=== PATIENT | female | born 1960 | race Caucasian/White ===

== ENCOUNTER 2020-01-12 09:37 | Outpatient (CLI) | payer MEDICAID, SELFPAY ==
--- NOTE | 2020-01-12 09:43 | CT_ITS ---
WS: [id number] CT LUNG CANCER SCREENING DLP: 83.5 mGy.cm DIvol: 2.28 mGy CLINICAL INFORMATION SCREENING VISIT: Baseline COMPARISON: None available. FINDINGS Diagnostic quality: Satisfactory Comments: None. Lung Nodules: Partially calcified 4 millimeter nodule RIGHT lower lobe, image 126 of series 3. No end obronchial lesions. Lungs: RIGHT apical pleural thickening and scarring. Benign granulomata LEFT lower lobe. Heart: Normal size heart. No pericardial effusions. Other findings: Mild atherosclerosis aorta. No aneurysm. A few scattered coronary artery calcificatio ns. Small hiatal hernia. Well-circumscribed 18 mm LEFT adrenal mass is probably an adenoma. No histor y of malignancy statistically this would be an adenoma. Hounsfield units are slightly elevated. CT/CT lung screening [id number] IMPRESSION: LUNG-RADS: 2S-Benign Appearance or Behavior with Significant Findings FOLLOW UP: 12 Month: Continue annual screening with LDCT 1. LEFT adrenal mass measures 18 mm. Statistically this is likely an adenoma. Recommend dedicated CT protocol of the adrenal glands.
== END 2020-01-12 09:38 | disposition home or self-care (01) ==
LOC: RAD 09:40
PROVIDERS: PCP Internal Medicine; Visit Provider Internal Medicine
DX: Z12.2 Encounter for screening for malignant neoplasm of respiratory organs (principal); F17.200 Nicotine dependence, unspecified, uncomplicated; D49.7 Neoplasm of unspecified behavior of endocrine glands and other parts of nervous system
CPT/HCPCS: G0297

== ENCOUNTER 2020-02-16 12:57 | Outpatient (CLI) | payer MEDICAID, SELFPAY ==
--- NOTE | 2020-02-16 13:17 | MM_ITS ---
WS: [id number] BILATERAL DIGITAL SCREENING MAMMOGRAPHY WITH CAD CLINICAL INFORMATION: SCREENING HISTORY: Screening mammogram. No current complaints. COMPARISON: TECHNIQUE: Bilateral CC and MLO views. FINDINGS: The breasts are composed of heterogeneous fibroglandular density tissue, which can limit the detectio n of small underlying mass lesions. Asymmetric density upper inner right breast more prominent compar ed to previous. This measures 7 mm RIGHT DIAGNOSTIC MAMMOGRAPHY WITH SPOT COMPRESSION VIEWS AND ULTRASOUND FOR FURTHER EVALUATION. Left breast is unchanged. MM/[place] [id number] IMPRESSION: BI-RADS: 0-Incomplete: Need additional imaging evaluation FOLLOW UP: Need Additional Imaging
== END 2020-02-16 12:58 | disposition home or self-care (01) ==
LOC: RADSHAW 12:59
PROVIDERS: PCP Internal Medicine; Visit Provider Internal Medicine
DX: Z12.31 Encounter for screening mammogram for malignant neoplasm of breast (principal); N64.89 Other specified disorders of breast
CPT/HCPCS: 77067

== ENCOUNTER 2020-03-22 09:58 | Outpatient (CLI) | payer MEDICAID, SELFPAY ==
--- NOTE | 2020-03-22 10:22 | US_ITS ---
WS: [id number] BILATERAL DIGITAL DIAGNOSTIC MAMMOGRAM MAMMOGRAPHY WITH CAD CLINICAL INFORMATION: RT BR DENSITY COMPARISON: February 16, 2020 TECHNIQUE: Bilateral CC, MLO, and ML views. FINDINGS: The breasts are composed of heterogeneously dense tissue, which can limit the detection of small unde rlying mass lesions. Stable asymmetric density upper inner right breast measuring 7 mm. Ultrasound is pending. ULTRASOUND BREAST RIGHT TECHNIQUE: Ultrasound right breast focused area of concern. CLINICAL INFORMATION: RT BR DENSITY COMPARISON: None. FINDINGS: Ultrasound right breast 12:00 position 2 cm from the nipple. Ductal ectasia with small cluster of yanni rocysts at the 12:00 position 1 and 2 cm from the nipple. This is probably benign. Recommend 6 month follow-up RIGHT diagnostic mammography and ultrasound to confirm stability. US/US breast RT limited* [id number] IMPRESSION: BI-RADS: 3-Probably Benign FOLLOW UP: 6 Month Follow-up
== END 2020-03-22 09:59 | disposition home or self-care (01) ==
LOC: RADSHAW 09:58
PROVIDERS: PCP Internal Medicine; Visit Provider Internal Medicine
DX: R92.8 Other abnormal and inconclusive findings on diagnostic imaging of breast (principal); N60.41 Mammary duct ectasia of right breast
CPT/HCPCS: 76642; 77065

== ENCOUNTER 2020-04-13 12:11 | Outpatient (CLI) | payer MEDICAID, SELFPAY ==
--- NOTE | 2020-04-13 | CT_ITS ---
WS: [id number] CT ABDOMEN AND PELVIS WITH CONTRAST HISTORY: Abdominal PAIN GENERALIZED TECHNIQUE: Imaging performed of the abdomen and pelvis with IV contrast. Single phase imaging of the abdomen. Coronal and sagittal reformats are submitted. All CT scans at [facility] use at least one of these dose optimization techniques: automated exposure control; mA and/or kV adjustment per patient size (includes targeted exams where dose is matched to clinical indication); or iterativ e reconstruction. IV CONTRAST: Omnipaque 300; 95 mL IV. Oral contrast: Yes. DLP: 1060.86 mGycm COMPARISON: None available. Lower thorax: Benign granuloma at the lung bases. 1 small hiatal hernia. Liver/biliary system: Normal size liver. Several low-attenuation lesions consistent with cysts. The l argest in the RIGHT lobe measures 18 mm. No bile duct dilatation. Gallbladder: Status post cholecystectomy. Pancreas: Normal. Spleen: Normal. Adrenal glands: Normal RIGHT adrenal gland. Well-circumscribed enhancing mass associated with the LEF T adrenal gland measuring 18 x 17 mm. Suspect this may be an adrenal adenoma. Previously described on 01/12/2020. Dedicated adrenal mass CT protocol was recommended at that time but not performed. Right kidney: Normal. Left kidney: Normal. Aorta: Mild atherosclerosis with no aneurysm. Lymphadenopathy: None. Free fluid: None. GI tract: Normal appendix. There is mild wall thickening involving the cecum. There are several adjac ent diverticula. Be contained and at the cecum also. These are at risk for perforation additional sig moid diverticulosis without acute diverticulitis. Abdominal wall: Unremarkable abdominal wall. No hernia. Pelvis: No free fluid in the pelvis. Urinary bladder is normally distended. Uterus is anteverted and normal size. Normal size ovaries. Bones: Mild RIGHT convex curvature lumbar spine. CT/CT abdomen pelvis w con* [id number] IMPRESSION: 1. Mild wall thickening involving the cecum and ascending colon with a few adj acent diverticula. Mild colitis and/or diverticulitis suspected. Suggest follow -up colonoscopy after acute episode resolves or repeat CT imaging with IV and o ral contrast. 2. Sigmoid diverticulosis without acute diverticulitis. 3. LEFT adrenal gland mass measuring 18 x 17 mm. Seen on the prior study of 01/12/2020. Dedicated adrenal mass CT protocol was recommended at that time but to my knowledge has not been performed. 4. Hepatic cysts. 5. Prior cholecystectomy.
[2020-04-13] MEDS: iohexol 300 mg/mL 50 mL Btl PO (12:40)
[2020-04-13] MEDS: iodixanol 320 mg/mL 100mL Btl IV (13:47)
== END 2020-04-13 12:12 | disposition home or self-care (01) ==
LOC: RADWPI 12:15
PROVIDERS: PCP Internal Medicine; Visit Provider Internal Medicine
DX: R10.84 Generalized abdominal pain (principal); K57.30 Diverticulosis of large intestine without perforation or abscess without bleeding; K76.89 Other specified diseases of liver; Z90.49 Acquired absence of other specified parts of digestive tract
CPT/HCPCS: 74177; Q9967

== ENCOUNTER 2020-04-24 08:24 | Outpatient (CLI) | payer MEDICAID, SELFPAY ==
--- NOTE | 2020-04-24 09:18 | CT_ITS ---
WS: [id number] CT ABDOMEN WITH AND WITHOUT CONTRAST. HISTORY: ADRENAL ADENOMA Technique: All CT scans at [facility] use at least one of these dose optimization techniq ues: automated exposure control; mA and/or kV adjustment per patient size (includes targeted exams wh ere dose is matched to clinical indication); or iterative reconstruction. DLP: 1751.12 mGycm COMPARISON: 04/13/2020 CT performed for adrenal mass evaluation. LEFT adrenal mass measures 1.9 x 1.8 cm. Well circumscribed mass with enhancement. Absolute washout v alue is 79%. Relative washout value is 50%. Both of these values indicate a benign adenoma. RIGHT adrenal gland is normal. Lung bases are clear. Granulomata. Prior cholecystectomy. 6 mm LEFT hepatic cysts. Largest RIGHT hepa tic cyst is 19 mm. There are additional small scattered hepatic cysts. These are too small to charact erize completely. Hemangioma suspected in the periphery of the RIGHT lobe of the liver as it comes is odense to the liver on the delayed imaging. Pancreas and spleen and kidneys are negative. Retroaortic LEFT renal vein. Atherosclerosis aorta. No ascites or adenopathy. CT/CT abdomen wo/w con [id number] IMPRESSION: 1. Dedicated evaluation of the LEFT adrenal gland mass indicates a benign jose martin jolynn. Both the relative and absolute washout values suggest benign adenoma. 2. Prior cholecystectomy.
[2020-04-24] MEDS: iohexol 300 mg/mL 100 mL Btl IV (09:40)
== END 2020-04-24 08:25 | disposition home or self-care (01) ==
LOC: RADWPI 08:25
PROVIDERS: PCP Internal Medicine; Visit Provider Internal Medicine
DX: D35.02 Benign neoplasm of left adrenal gland; Z90.49 Acquired absence of other specified parts of digestive tract
CPT/HCPCS: 74170; Q9967

== ENCOUNTER 2020-05-02 09:58 | Outpatient (CLI) | payer MEDICAID, SELFPAY ==
--- NOTE | 2020-05-02 10:35 | MR_ITS ---
WS: [id number] MRI HEAD WITHOUT CONTRAST TECHNIQUE: Sagittal T1, T2 axial, T2 axial FLAIR, axial and coronal T1 images, axial susceptibility w eighted imaging, axial diffusion weighted images, and coronal T2 images were obtained. CLINICAL INFORMATION: DIZZY SPELLS, CHRONIC HEADACHE COMPARISON: MRI 3 [id number] FINDINGS: No evidence of restricted diffusion to suggest acute ischemia. Ventricular system and basal cisterns are patent. Moderate small vessel changes with mild parenchymal volume loss. Small vessel changes sli ghtly progressed since 2018. Small vessel changes in the seamus. Normal posterior fossa. Normal vascular flow voids at the skull base. No extra-axial fluid collection s. No evidence of mass or mass effect. Paranasal sinuses and mastoid air cells are well aerated. Mild symmetric atrophy involving the temporal lobes and hippocampal formations. Normal optic chiasm a nd pituitary infundibulum. No hemosiderin on the susceptibility weighted images. MR/MR head wo con* [id number] IMPRESSION: 1. No evidence of restricted diffusion to suggest acute ischemia. 2. Moderate small vessel changes with mild parenchymal volume loss. Small vess el changes slightly progressed since 2018 3. No extra axial fluid collections. No evidence of mass or mass effect. 4. Mild symmetric atrophy involving the temporal lobes and hippocampal formati ons. 5. No hemosiderin on susceptibly weighted images.
== END 2020-05-02 09:59 | disposition home or self-care (01) ==
LOC: RADWPI 10:01
PROVIDERS: PCP Internal Medicine; Visit Provider Internal Medicine
DX: R42 Dizziness and giddiness (principal); R51.9 Headache, unspecified; G31.9 Degenerative disease of nervous system, unspecified
CPT/HCPCS: 70551

== ENCOUNTER → 2020-05-18 11:32 | Outpatient (BNVA) | payer MEDICAID, SELFPAY | PROVIDERS: PCP Internal Medicine; Visit Provider Surgery | DX: R10.13 Epigastric pain (principal); R10.9 Unspecified abdominal pain; Z20.828 Contact with and (suspected) exposure to other viral communicable diseases | CPT/HCPCS: 87635 ==

== ENCOUNTER 2020-05-25 08:43 | Day surgery (SDC) | payer MEDICAID, SELFPAY ==
[2020-05-24 08:11] VITALS: BMI 27.4
[2020-05-25 09:00] VITALS: BP 154/82; PULSE 99; RESP 18; TEMP 36.7; O2SAT 99
[2020-05-25] MEDS: sodium chloride 0.9% 1,000 ML 30 ML IV (09:20)
--- NOTE | 2020-05-25 09:37 | ANES.PREANE2 ---
Pre-Anesthetic Assessment Pre-Anesthetic Assessment: Height/Weight: Height 1.63 m Weight 72.575 kg Temp Pulse Resp BP Pulse Ox 98.1 F 99 18 154/82 99 05/25/20 09:00 05/25/20 09:00 05/25/20 09:00 05/25/20 09:00 05/25/20 09:00 Preop Diagnosis: Epigastric pain Proposed Procedure: Operation Date: 05/25/20 09:45 Proposed Procedures p Colonoscopy 98296 R10.13 R10.9(Not Applicable) - Joshua Segura MD s EGD 32051 R10.13 R10.9(Not Applicable) - Joshua Segura MD Familial anesthetic complications: NOne Was Beta Elena taken within 24 hours: Yes Last intake: Intake Last Liquid Date 05/24/20 Last Liquid Time 18:30 Last Solid Date 05/24/20 Last Solid Time 18:30 Social: Social History: No alcohol and No tobacco Exam: Pre-Anes Outpt Exam: alert, oriented x 3, clear to auscultation bilaterally and regular rate & rhythm Airway: Cervical ROM: WNL MP: 3 Dentition: Full Pulmonary: Pulmonary: COPD and Sleep apnea (CPAP) CV/HEM: CV/HEM: HTN GI: GI: GERD Metabolic: Metabolic: DM and Thyroid Anesthetic Plan: ASA status: 3 Anesthesia: MAC Risk of > 500 ml blood loss (7ml/kg in children): No Meds/Allergies Current Medications: Current Medications Generic Name Dose Route Start Last Admin Trade Name Freq PRN Reason Stop Dose Admin Sodium Chloride 1,000 mls @ 30 ml s/hr 05/25/20 09:00 05/25/20 09:20 Sodium Chloride 0.9% IV 05/26/20 08:59 30 mls/hr .Q24H PRICILLA Administration PFSH Anesthesia PFSH: Medical History COPD (chronic obstructive pulmonary disease) Depression Hypertension Hypothyroid NATHALY (obstructive sleep apnea) Surgical History H/O colonoscopy 2018 H/O esophagogastroduodenoscopy 2018 H/O rotator cuff surgery Hx of cholecystectomy Family History Grandmother CAD (coronary artery disease) Mother Cancer leukemia Diabetes Hypertension Father Cancer lung Diabetes Hypertension Denies family history of Anesthesia complication Bleeding disorder Social History Smoking and tobacco status: current every day smoker Alcohol intake: never Household members: family Marital status: Single Current occupational status: disabled History of recent travel: No Data Anesthesia Cardiac Studies: No Data to Display
--- NOTE | 2020-05-25 09:51 | W.PM.OPSUD ---
Surgery/Procedure H&P Update DATE OF PROCEDURE: May 25, 2020 DATE H&P PERFORMED: 05/12/20 H&P UPDATE INFORMATION: I have reviewed H&P completed within last 30 days, I have examined patient prior to procedure and No changes to prior documentation PREOP DIAGNOSIS: Epigastric pain PLANNED PROCEDURE: Operation Date: 05/25/20 09:45 Proposed Procedures p Colonoscopy 00462 R10.13 R10.9(Not Applicable) - Joshua Segura MD s EGD 02932 R10.13 R10.9(Not Applicable) - Joshua Segura MD
[2020-05-25 12:58] VITALS: BP 99/55; PULSE 86; RESP 16; TEMP 36.6; O2SAT 96
[2020-05-25 13:15] VITALS: BP 107/58; PULSE 79; RESP 14; TEMP 36.6; O2SAT 100
--- NOTE | 2020-05-25 15:51 | ANE.PACU2 ---
Inpatient post-anesthesia follow up: Airway intact: Yes Vital signs: Temperature 97.8 F Pulse Rate 79 Respiratory Rate 14 Blood Pressure 107/58 Pulse Oximetry 100 Oxygen Delivery Me thod Room Air Oxygen Flow Rate 2 Fraction of Inspir ed Oxygen Hydration adequate: Yes Nausea and vomiting: No Pain level: 2 Mental status: Baseline
== END 2020-05-25 13:25 | disposition home or self-care (01) ==
PROVIDERS: PCP Internal Medicine; Visit Provider Surgery
PROC: 0DJD8ZZ Inspection of Lower Intestinal Tract, Via Natural or Artificial Opening Endoscopic (ICD-10-PCS; CPT 45378; principal; 2020-05-25 09:45)
PROC: 0DJ08ZZ Inspection of Upper Intestinal Tract, Via Natural or Artificial Opening Endoscopic (ICD-10-PCS; CPT 43235; 2020-05-25 09:45)
DX: R10.13 Epigastric pain (principal); K63.5 Polyp of colon; D12.2 Benign neoplasm of ascending colon; K57.30 Diverticulosis of large intestine without perforation or abscess without bleeding; K64.8 Other hemorrhoids; J44.9 Chronic obstructive pulmonary disease, unspecified; I10 Essential (primary) hypertension; E11.9 Type 2 diabetes mellitus without complications; K21.9 Gastro-esophageal reflux disease without esophagitis; E03.9 Hypothyroidism, unspecified; G47.33 Obstructive sleep apnea (adult) (pediatric); Z90.49 Acquired absence of other specified parts of digestive tract; Z82.49 Family history of ischemic heart disease and other diseases of the circulatory system; Z80.1 Family history of malignant neoplasm of trachea, bronchus and lung; Z80.6 Family history of leukemia; F17.200 Nicotine dependence, unspecified, uncomplicated; Z79.82 Long term (current) use of aspirin
CPT/HCPCS: 12345; 43239; 45380; 88305; J2704; J7030

== ENCOUNTER → 2020-08-16 10:53 | Outpatient (BNVA) | payer MEDICAID, SELFPAY | PROVIDERS: PCP Internal Medicine; Visit Provider Specialist | DX: G31.84 Mild cognitive impairment of uncertain or unknown etiology (principal); R26.81 Unsteadiness on feet; R42 Dizziness and giddiness; F17.210 Nicotine dependence, cigarettes, uncomplicated | CPT/HCPCS: 96116; 99205 ==

== ENCOUNTER 2020-12-20 10:03 | Outpatient (CLI) | payer MEDICAID, SELFPAY ==
--- NOTE | 2020-12-20 10:08 | MM_ITS ---
WS: [id number] DIAGNOSTIC RIGHT DIGITAL MAMMOGRAM WITH CAD RIGHT breast ultrasound, limited HISTORY: RIGHT BREAST LUMP COMPARISON: Follow-up. Technique: CC, MLO and ML views. Spot compression RIGHT MLO Breast composition: The breasts are heterogeneously dense, which may obscure small masses. Partially obscured asymmetries persist in the superior RIGHT breast in the upper outer quadrant or at 12:00. N o progression. These asymmetries are obscured by adjacent normal soft tissue. RIGHT breast ultrasound, limited. Ovoid complex cystic mass at 12:00, 2 cm from the nipple measures 7 x 4 x 8 mm. There are a few small probably prominent ducts in the upper-outer quadrant. As compared to the prior study from 03/22/2020 the cystic mass at 12:00 has not changed. MM/[place] [id number] IMPRESSION: BI-RADS: 3-Probably Benign FOLLOW UP: 6 Month Follow-up Long-term stability of the complex cystic nodule in the RIGHT breast at 12:00 n eeds to be documented. Patient also needs to return in 2 months for the LEFT breast annual evaluation.
== END 2020-12-20 10:04 | disposition home or self-care (01) ==
LOC: RADSHAW 10:04
PROVIDERS: PCP Internal Medicine; Visit Provider Internal Medicine
DX: R92.8 Other abnormal and inconclusive findings on diagnostic imaging of breast (principal); N63.15 Unspecified lump in the right breast, overlapping quadrants
CPT/HCPCS: 76642; 77065

== ENCOUNTER 2021-01-12 12:32 | Outpatient (CLI) | payer MEDICAID, SELFPAY ==
--- NOTE | 2021-01-12 12:38 | CT_ITS ---
WS: [id number] LDCT LUNG CANCER SCREENING HISTORY: NICOTINE DEPENDENCE TECHNIQUE: Axial imaging performed from the apices to 1 cm below the costophrenic angles. Coronal and sagittal reformats are submitted with axial MIP series. All CT scans at [facility] use at least one of these dose optimization techniques: automated exposure control; mA and/or kV adjustment per patient size (includes targeted exams where dose is matched to clinical indication); or iterativ e reconstruction. DLP: 58.54 mGy.cm DIvol: 1.58 mGy COMPARISON: 01/12/2020 Diagnostic quality: Satisfactory Lung Nodules: 2 mm nodule LEFT upper lobe, image 62 of series 3. Biapical pleural thickening. No endo bronchial lesions. Lungs: Chronic emphysema. Stable biapical pleural thickening. Heart: Normal size heart. No pericardial effusion. Other findings: Mild atherosclerosis of aorta. Normal size pulmonary artery. Again noted is the LEFT adrenal round mass measuring 18 mm which has been shown to be an adenoma on prior CT. CT/CT lung screening [id number] IMPRESSION: LUNG-RADS: 1-Negative FOLLOW UP: 12 Month: Continue annual screening with LDCT OTHER FINDINGS (S MODIFIER): None.
== END 2021-01-12 12:33 | disposition home or self-care (01) ==
LOC: RAD 12:34
PROVIDERS: PCP Internal Medicine; Visit Provider Internal Medicine
DX: Z12.2 Encounter for screening for malignant neoplasm of respiratory organs (principal); F17.200 Nicotine dependence, unspecified, uncomplicated; I70.0 Atherosclerosis of aorta
CPT/HCPCS: 71271

== ENCOUNTER → 2021-02-13 13:38 | Outpatient (BNVA) | payer MEDICAID, SELFPAY | PROVIDERS: PCP Internal Medicine; Visit Provider Specialist | DX: G31.84 Mild cognitive impairment of uncertain or unknown etiology (principal) | CPT/HCPCS: 96116; 99214 ==

== ENCOUNTER 2021-03-08 10:55 | Outpatient (CLI) | payer MEDICAID, SELFPAY ==
--- NOTE | 2021-03-08 11:00 | MM_ITS ---
WS: [id number] DIAGNOSTIC LEFT DIGITAL MAMMOGRAM WITH CAD HISTORY: 2 MO F/U ANNUAL COMPARISON: 11/15/2013, 05/06/2018 and 02/16/2020 Technique: CC, MLO and ML views. Breast composition: The breasts are heterogeneously dense, which may obscure small masses. 6 mm asymmetry seen in the posterior superior LEFT breast on the MLO projection. Cannot determine whe ther this is in the medial or lateral breast on the CC projection. No distortion. MM/[place] [id number] IMPRESSION: BI-RADS: 0-Incomplete: Need additional imaging evaluation FOLLOW UP: Need Additional Imaging LEFT breast: Spot compression views (CC and MLO). True ML. Ultrasound to follow if abnormality persists.
== END 2021-03-08 10:56 | disposition home or self-care (01) ==
LOC: RADSHAW 10:59
PROVIDERS: PCP Internal Medicine; Visit Provider Internal Medicine
DX: R92.8 Other abnormal and inconclusive findings on diagnostic imaging of breast (principal); N64.89 Other specified disorders of breast
CPT/HCPCS: 77065

== ENCOUNTER 2021-03-16 14:35 | Outpatient (CLI) | payer MEDICAID, SELFPAY ==
--- NOTE | 2021-03-16 14:43 | US_ITS ---
WS: [id number] ADDITIONAL VIEWS LEFT MAMMOGRAM LEFT BREAST ULTRASOUND HISTORY: LT BREAST ABNORMAL MAMMOGRAM COMPARISON: 03/08/2021 02/16/2020, 05/06/2018 and 12/24/2016 LEFT MAMMOGRAM: Spot compression views and true ML. Asymmetry described on the LEFT MLO projection on 03/08/2021 resolves. Ultrasound will be performed in near the 12:00 axis near the dense fibroglandular tissue. LEFT BREAST ULTRASOUND 2-D and color Doppler imaging submitted. No solid masses or shadowing in the LEFT breast near 12:00. There is a small cyst with a maximum diam eter of 3 mm which may correspond to the nodule seen posterior to the nipple. US/US breast LT limited* [id number] IMPRESSION: BI-RADS: 2-Benign FOLLOW UP: 1 Year Follow-up
== END 2021-03-16 14:36 | disposition home or self-care (01) ==
LOC: RADSHAW 14:40
PROVIDERS: PCP Internal Medicine; Visit Provider Internal Medicine
DX: R92.8 Other abnormal and inconclusive findings on diagnostic imaging of breast (principal)
CPT/HCPCS: 76642; 77065

== ENCOUNTER 2021-03-20 11:58 | Outpatient (CLI) | payer MEDICAID, SELFPAY ==
--- NOTE | 2021-03-20 12:09 | XR_ITS ---
WS: [id number] RIGHT KNEE: 3 VIEW(S) TECHNIQUE: AP, oblique(s) and lateral. HISTORY: PAIN IN R KNEE COMPARISON: None available. No fracture or dislocation. No joint space narrowing or osteophytes. No joint effusion. No soft tissue abnormality. XR/XR knee RT 3V* [id number] IMPRESSION: Normal RIGHT knee.
== END 2021-03-20 11:59 | disposition home or self-care (01) ==
PROVIDERS: PCP Internal Medicine; Visit Provider Internal Medicine
DX: M25.561 Pain in right knee (principal)
CPT/HCPCS: 73562

== ENCOUNTER → 2021-06-13 12:24 | Outpatient (BNVA) | payer MEDICAID, SELFPAY | PROVIDERS: PCP Internal Medicine; Visit Provider Specialist | DX: G31.84 Mild cognitive impairment of uncertain or unknown etiology (principal) | CPT/HCPCS: 99212; 99213 ==

== ENCOUNTER 2021-07-17 07:56 | Outpatient (CLI) | payer MEDICAID, SELFPAY ==
--- NOTE | 2021-07-17 08:03 | MM_ITS ---
WS: [id number] DIAGNOSTIC RIGHT DIGITAL MAMMOGRAM WITH CAD HISTORY: ABNORMAL MAMMOGRAM RIGHT COMPARISON: 12/20/2020, 03/22/2020 and 02/16/2020 Technique: CC, MLO and ML views. Spot compression RIGHT MLO. Breast composition: There are scattered areas of fibroglandular density. Normal fibroglandular patte rn. No asymmetries are identified. No architectural distortion. RIGHT breast ultrasound, limited. At 12:00, 2 cm from the nipple is a complex cyst which has significantly decreased in size since the prior examination. The residual complex cyst now measures 6 x 3 x 6 mm. No additional abnormality not ed. MM/[place] [id number] IMPRESSION: BI-RADS: 2-Benign FOLLOW UP: 1 Year Follow-up Return to annual screening.
== END 2021-07-17 07:57 | disposition home or self-care (01) ==
LOC: RADSHAW 07:58
PROVIDERS: PCP Internal Medicine; Visit Provider Internal Medicine
DX: R92.8 Other abnormal and inconclusive findings on diagnostic imaging of breast (principal)
CPT/HCPCS: 76642; 77065

== ENCOUNTER → 2021-10-08 14:54 | Outpatient (BNVA) | payer MEDICAID, SELFPAY | PROVIDERS: PCP Internal Medicine; Visit Provider Specialist | DX: G31.84 Mild cognitive impairment of uncertain or unknown etiology (principal); R51.9 Headache, unspecified; F17.200 Nicotine dependence, unspecified, uncomplicated | CPT/HCPCS: 96116; 99213 ==

== ENCOUNTER 2022-01-30 10:40 | Outpatient (CLI) | payer MEDICAID, SELFPAY ==
--- NOTE | 2022-01-30 10:51 | CT_ITS ---
WS: [id number] LDCT LUNG CANCER SCREENING HISTORY: HX OF TOBACCO USE TECHNIQUE: Axial imaging performed from the apices to 1 cm below the costophrenic angles. Coronal and sagittal reformats are submitted with axial MIP series. All CT scans at [facility] use at least one of these dose optimization techniques: automated exposure control; mA and/or kV adjustment per patient size (includes targeted exams where dose is matched to clinical indication); or iterativ e reconstruction. DLP: 75.91 mGy.cm DIvol: Mean CTDIvol: 1.60 (mGy) COMPARISON: 01/12/2021 Diagnostic quality: Satisfactory Lung Nodules: No enlarging nodules. Benign granuloma at the LEFT lung base. No endobronchial lesions. Lungs: Chronic emphysema. Heart: Normal size heart with no pericardial effusion. Other findings: LEFT vertebral artery arises directly from the aortic arch. Mild atherosclerosis aort a. Small hiatal hernia. Stable 18 mm LEFT adrenal nodule. Prior cholecystectomy. CT/CT lung screening [id number] IMPRESSION: LUNG-RADS: 1-Negative FOLLOW UP: 12 Month: Continue annual screening with LDCT OTHER FINDINGS (S MODIFIER): None.
== END 2022-01-30 10:41 | disposition home or self-care (01) ==
LOC: RAD 10:40
PROVIDERS: PCP Internal Medicine; Visit Provider Internal Medicine
DX: Z12.2 Encounter for screening for malignant neoplasm of respiratory organs (principal); F17.200 Nicotine dependence, unspecified, uncomplicated
CPT/HCPCS: 71271

== ENCOUNTER 2022-06-04 13:02 | Outpatient (CLI) | payer MEDICAID, SELFPAY ==
--- NOTE | 2022-06-04 13:07 | MM_ITS ---
WS: [id number] BILATERAL 3D TOMOSYNTHESIS DIGITAL SCREENING MAMMOGRAPHY WITH CAD CLINICAL INFORMATION: SCREENING HISTORY: Screening mammogram. No current complaints. COMPARISON: March 08, 2021 TECHNIQUE: Bilateral CC and MLO views. FINDINGS: Scattered fibroglandular densities bilaterally. Stable nodularity RIGHT breast. Prior ultrasound dem onstrated RIGHT breast cysts. No suspicious focal mass, asymmetry, calcifications, or architectural d istortion. No evidence of malignancy. MM/[place] [id number] IMPRESSION: BI-RADS: 2-Benign FOLLOW UP: 1 Year Follow-up Recommend return to annual screening mammography.
== END 2022-06-04 13:03 | disposition home or self-care (01) ==
LOC: RAD 13:03
PROVIDERS: PCP Internal Medicine; Visit Provider Internal Medicine
DX: Z12.31 Encounter for screening mammogram for malignant neoplasm of breast (principal)
CPT/HCPCS: 77063; 77067

== ENCOUNTER 2022-08-13 10:57 | Outpatient (CLI) | payer MEDICAID, SELFPAY ==
--- NOTE | 2022-08-13 11:26 | XRR_ITS ---
PROCEDURE INFORMATION: Exam: XR Left Shoulder Exam date and time: 08/13/2022 11:47 AM Age: 62 years old Clinical indication: Left; Patient HX: Lt shoulder pain for 2 months, no known injury; Additional info: Pain of left shoulder joint TECHNIQUE: Imaging protocol: Radiologic exam of the Left shoulder. Views: 2 or more views. COMPARISON: CT lung screening [id number] 01/30/2022 10:56 AM FINDINGS: Bones/joints: Unremarkable except for minimal hypertrophic bony change inferior aspect of the distal left clavicle at the acromioclavicular joint. Soft tissues: Appear unremarkable XR/XR shoulder LT min 2V* [id number] IMPRESSION: 1. Minimal hypertrophic bony change inferior aspect of the distal left clavicle at the acromioclavicular joint. 2. No fracture or acute osseous abnormality.
== END 2022-08-13 10:58 | disposition home or self-care (01) ==
LOC: RAD 11:00
PROVIDERS: PCP Internal Medicine; Visit Provider Nurse Practitioner Family
DX: M25.512 Pain in left shoulder (principal)
CPT/HCPCS: 73030

== ENCOUNTER 2022-09-06 07:09 | Outpatient (CLI) | payer MEDICAID, SELFPAY ==
--- NOTE | 2022-09-06 07:17 | MR_ITS ---
WS: [email or web address] EXAMINATION: MR shoulder LT wo con* [id number] ORDER DATE: 09/06/2022 7:18 AM COMPARISON: None. HISTORY: PAIN OF LEFT SHOULDER JOINT CONTRAST: None. TECHNIQUE: Axial T2 STAR, coronal proton density fat sat, sagittal T2 fat sat, sagittal proton densit y fat sat, axial proton density fat sat, coronal T2 fat sat, and coronal T1 performed. After contrast , axial T1 fat sat, coronal T1 fat sat, and sagittal T1 fat sat were performed. FINDINGS: Moderate degenerative arthritis AC joint with mild edema. Downsloping the acromion. Subacromial spurr ing impinges the distal supraspinatus. Chronic thinning of the distal supraspinatus with tendinopathy distally. Normal infraspinatus. Normal teres minor. Normal subscapularis. Normal biceps tendon in th e bicipital groove. Normal intra-articular biceps tendon. Normal biceps labral anchor. Degenerative narrowing glenohumeral joint. Degenerative fraying glenoid labrum. Normal bone marrow si gnal in the humerus and glenoid. MR/MR shoulder LT wo con* [id number] IMPRESSION: 1. Moderate degenerative arthritis AC joint with downsloping acromion. Mild ed shahzad at the AC joint with impingement on the distal supraspinatus. 2. Tendinopathy within the distal supraspinatus. Chronic thinning of the supra spinatus tendon distally. 3. Rotator cuff is otherwise intact. 4. Normal biceps tendon in the bicipital groove. 5. Intra-articular biceps tendon is intact. Biceps labral complex is intact. 6. Degenerative fraying of the glenoid labrum.
== END 2022-09-06 07:10 | disposition home or self-care (01) ==
PROVIDERS: PCP Internal Medicine; Visit Provider Internal Medicine
DX: M19.012 Primary osteoarthritis, left shoulder (principal); M25.512 Pain in left shoulder
CPT/HCPCS: 73221

== ENCOUNTER → 2022-10-08 14:37 | Outpatient (BNVA) | payer MEDICAID, SELFPAY | PROVIDERS: PCP Internal Medicine; Visit Provider Specialist | DX: G31.84 Mild cognitive impairment of uncertain or unknown etiology (principal); R51.9 Headache, unspecified | CPT/HCPCS: 96116; 99213 ==

== ENCOUNTER → 2022-10-14 14:20 | Outpatient (BNVA) | payer MEDICAID, SELFPAY | PROVIDERS: PCP Internal Medicine; Referring Provider Internal Medicine; Visit Provider Student in an Organized Health Care Education/Training Program | DX: M75.42 Impingement syndrome of left shoulder (principal); M75.82 Other shoulder lesions, left shoulder; M50.30 Other cervical disc degeneration, unspecified cervical region | CPT/HCPCS: 20610; 99204; J3301 ==

== ENCOUNTER → 2022-10-17 09:56 | Outpatient (BNVA) | payer MEDICAID, SELFPAY | PROVIDERS: PCP Internal Medicine; Visit Provider Physician Assistant | DX: M47.812 Spondylosis without myelopathy or radiculopathy, cervical region (principal); M50.30 Other cervical disc degeneration, unspecified cervical region | CPT/HCPCS: 72050; 99203 ==

== ENCOUNTER → 2022-11-28 08:56 | Outpatient (BNVA) | payer MEDICAID, SELFPAY | PROVIDERS: PCP Internal Medicine; Visit Provider Physician Assistant | DX: M50.30 Other cervical disc degeneration, unspecified cervical region (principal); M47.812 Spondylosis without myelopathy or radiculopathy, cervical region | CPT/HCPCS: 99213 ==

== ENCOUNTER 2022-12-17 12:57 | Outpatient (CLI) | payer MEDICAID, SELFPAY ==
--- NOTE | 2022-12-17 13:45 | MR_ITS ---
WS: [id number] MRI CERVICAL SPINE NONCONTRAST TECHNIQUE: Sagittal T1, T2 and STIR imaging. Axial T2, gradient, and fiesta imaging. CLINICAL INFORMATION: pain COMPARISON: None. FINDINGS: Mild spondylitic changes cervical spine. Slight anterolisthesis C4 on C5. Disc osteophyte complexes w orse at C5-C6 and C6-C7. Slight anterolisthesis C4 on C5. Cord signal is normal. C2-C3: Mild facet arthropathy. Spinal canal and foramen are patent. C3-C4: Mild facet arthropathy. Mild LEFT foraminal narrowing. Spinal canal is patent. C4-C5: Slight anterolisthesis. Disc osteophyte complex with endplate ridging. Mild bilateral foramina l narrowing. Moderate LEFT facet arthropathy. Degenerative edema in the LEFT C4-C5 facets. C5-C6: Disc osteophyte complex endplate ridging. Advanced facet arthropathy. Severe LEFT and moderate RIGHT bony foraminal narrowing. Moderate facet arthropathy. Mild central canal stenosis. C6-C7: Small central disc osteophyte complex with slight contact of the cervical cord. Mild central c anal stenosis. Mild LEFT and no significant RIGHT foraminal narrowing. C7-T1: Mild bilateral foraminal narrowing. Spinal canal and foramen are patent. Visualized brain stem structures: Normal. Prevertebral soft tissues: Normal. MR/MR cervical spin wo con* [id number] IMPRESSION: 1. Straightening of the normal cervical lordosis. Slight anterolisthesis C4 on C5. 2. Disc osteophyte complex C5-C6 and C6-C7 with mild central canal stenosis an d slight contact of the cervical cord. Small central protrusion C6-C7. 3. Severe LEFT C5-C6 bony foraminal narrowing. 4. Moderate RIGHT C5-C6 and mild LEFT C6-C7 bony foraminal narrowing. Mild LEF T C7-T1 bony foraminal narrowing.
== END 2022-12-17 12:58 | disposition home or self-care (01) ==
LOC: RAD 12:58
PROVIDERS: PCP Internal Medicine; Visit Provider Physician Assistant
DX: M47.812 Spondylosis without myelopathy or radiculopathy, cervical region (principal); M25.78 Osteophyte, vertebrae; M48.02 Spinal stenosis, cervical region; M50.30 Other cervical disc degeneration, unspecified cervical region
CPT/HCPCS: 72141; 99213

== ENCOUNTER → 2022-12-24 13:03 | Outpatient (BNVA) | payer MEDICAID, SELFPAY | PROVIDERS: PCP Internal Medicine; Visit Provider Physician Assistant | DX: M50.30 Other cervical disc degeneration, unspecified cervical region (principal); M47.812 Spondylosis without myelopathy or radiculopathy, cervical region | CPT/HCPCS: 99213 ==

== ENCOUNTER → 2023-02-05 10:45 | Outpatient (BNVA) | payer MEDICAID, SELFPAY | PROVIDERS: PCP Internal Medicine; Visit Provider Anesthesiology Pain Medicine | DX: M47.812 Spondylosis without myelopathy or radiculopathy, cervical region; M50.30 Other cervical disc degeneration, unspecified cervical region; M75.42 Impingement syndrome of left shoulder | CPT/HCPCS: 99204 ==

== ENCOUNTER → 2023-02-27 13:23 | Outpatient (BNVA) | payer MEDICAID, SELFPAY | PROVIDERS: PCP Internal Medicine; Visit Provider Anesthesiology Pain Medicine | DX: M54.12 Radiculopathy, cervical region (principal) | CPT/HCPCS: 62321; J1100 ==

== ENCOUNTER → 2023-03-18 10:43 | Outpatient (BNVA) | payer MEDICAID, SELFPAY | PROVIDERS: PCP Internal Medicine; Visit Provider Anesthesiology Pain Medicine | DX: M47.812 Spondylosis without myelopathy or radiculopathy, cervical region; M50.30 Other cervical disc degeneration, unspecified cervical region; M75.42 Impingement syndrome of left shoulder | CPT/HCPCS: 99214 ==

== ENCOUNTER 2023-03-31 12:55 | Outpatient (CLI) | payer MEDICAID, SELFPAY ==
--- NOTE | 2023-03-31 13:00 | XR_ITS ---
WS: [email or web address] SCREENING DEXA SCAN [employer] CLINICAL INFORMATION: POST MENOPAUSAL COMPARISON: 2019 FINDINGS: The L1-L4 bone mineral density measures 1.166 g/cm2. This corresponds to a T score score of -0.1 and Z score of 1.0. Left femoral neck bone mineral density measures 0.809 g/cm2. This corresponds to a T score of -1.6 an d Z score of -0.7. Right femoral neck bone mineral density measures 0.767 g/cm2. This corresponds to a T score -1.9of an d Z score of -1.1. Mean femoral neck bone mineral density measures 0.788 g/cm2. This corresponds to a T score of -1.7 an d Z score of -0.9. IMPRESSION: Normal bone mineralization lumbar spine. Osteopenia femoral necks. Patient's FRAX calculated 10 year probability for major osteoporotic fracture is 20.1% and osteoporot ic hip fracture is 5.8%. Bone mineral density lumbar spine decreased -4.6% Bone mineral density femoral necks decreased -1.7%
--- NOTE | 2023-03-31 13:03 | CT_ITS ---
WS: [email or web address] LDCT LUNG CANCER SCREENING TECHNIQUE: Noncontrast CT of the chest with coronal and sagittal reformatted images. CLINICAL INFORMATION: TOBACCO USE COMPARISON: 2021 DLP: 59.51 mGy.cm DIvol: Mean CTDIvol: 1.10 (mGy) All CT scans at [facility] use at least one of these dose optimization techniques: automat ed exposure control; mA and/or kV adjustment per patient size (includes targeted exams where dose is matched to clinical indication); or iterative reconstruction. FINDINGS: Chronic emphysematous changes. Stable 5 mm nodule RIGHT lower lobe. Additional RIGHT lower lobe nodule laterally measuring 5 mm. LEFT lower lobe calcified granulomas. No new suspicious pulmona ry parenchymal opacities. No mediastinal or hilar lymphadenopathy. No axillary lymphadenopathy. Mild aortic calcification. Mild coronary calcification. Stable 1.8 cm LEFT adrenal nodule. Prior cholecystectomy. Small esophageal hiatal hernia. IMPRESSION: CT/CT lung screening [id number] LUNG-RADS: 2-Benign Appearance or Behavior FOLLOW UP: 12 Month: Continue annual screening with LDCT
== END 2023-03-31 12:56 | disposition home or self-care (01) ==
PROVIDERS: PCP Internal Medicine; Visit Provider Internal Medicine
DX: Z12.2 Encounter for screening for malignant neoplasm of respiratory organs (principal); F17.200 Nicotine dependence, unspecified, uncomplicated; Z78.0 Asymptomatic menopausal state
CPT/HCPCS: 71271; 77080

== ENCOUNTER → 2023-05-19 10:09 | Outpatient (BNVA) | payer MEDICAID, SELFPAY | PROVIDERS: PCP Internal Medicine; Visit Provider Anesthesiology Pain Medicine | DX: G89.29 Other chronic pain; M47.812 Spondylosis without myelopathy or radiculopathy, cervical region; M50.30 Other cervical disc degeneration, unspecified cervical region; M75.42 Impingement syndrome of left shoulder; M54.50 Low back pain, unspecified | CPT/HCPCS: 99214 ==

== ENCOUNTER 2023-06-16 11:09 | Outpatient (CLI) | payer MEDICAID, SELFPAY ==
--- NOTE | 2023-06-16 11:15 | XR_ITS ---
WS: [email or web address] Exam: XR lumbar spine min 4V [id number] Date/Time of Exam: 06/16/2023 11:21 AM Reason For Exam: M54.50 - Low back pain, unspecified Comparison 11/12/2016. No fracture or dislocation. Moderate dextroscoliosis. Mild facet DJD. IMPRESSION1. No fracture or malalignment. 2. Dextroscoliosis and mild degenerative change.
== END 2023-06-16 11:10 | disposition home or self-care (01) ==
LOC: RAD 11:12
PROVIDERS: PCP Internal Medicine; Visit Provider Anesthesiology Pain Medicine
DX: M47.896 Other spondylosis, lumbar region (principal); M54.50 Low back pain, unspecified; G89.29 Other chronic pain
CPT/HCPCS: 72110

== ENCOUNTER → 2023-06-25 09:39 | Outpatient (BNVA) | payer MEDICAID, SELFPAY | PROVIDERS: PCP Internal Medicine; Visit Provider Anesthesiology Pain Medicine | DX: M47.812 Spondylosis without myelopathy or radiculopathy, cervical region; M50.30 Other cervical disc degeneration, unspecified cervical region; M75.42 Impingement syndrome of left shoulder; M54.50 Low back pain, unspecified | CPT/HCPCS: 99214 ==

== ENCOUNTER 2023-07-01 11:29 | Outpatient (CLI) | payer MEDICAID, SELFPAY ==
--- NOTE | 2023-07-01 11:33 | MM_ITS ---
WS: [id number] BILATERAL 3D TOMOSYNTHESIS DIGITAL SCREENING MAMMOGRAPHY WITH CAD CLINICAL INFORMATION: SCREENING HISTORY: Screening mammogram. No current complaints. COMPARISON: 2021 TECHNIQUE: Bilateral CC and MLO views. FINDINGS: The breasts are composed of heterogeneous fibroglandular density tissue, which can limit the detectio n of small underlying mass lesions. No suspicious mass, asymmetry, calcifications, or architectural d istortion. No evidence of malignancy. Incidental punctate calcification LEFT breast. IMPRESSION: MM/[place] [id number] BI-RADS: 2-Benign FOLLOW UP: 1 Year Follow-up Recommend return to annual screening mammography.
== END 2023-07-01 11:30 | disposition home or self-care (01) ==
LOC: RAD 11:30
PROVIDERS: PCP Internal Medicine; Visit Provider Internal Medicine
DX: Z12.31 Encounter for screening mammogram for malignant neoplasm of breast (principal)
CPT/HCPCS: 77063; 77067

== ENCOUNTER → 2023-07-16 13:06 | Outpatient (BNVA) | payer MEDICAID, SELFPAY | PROVIDERS: PCP Internal Medicine; Visit Provider Anesthesiology Pain Medicine | DX: M54.16 Radiculopathy, lumbar region (principal) | CPT/HCPCS: 64483; 64484; J1100; J3490 ==

== ENCOUNTER → 2023-07-30 13:06 | Outpatient (BNVA) | payer MEDICAID, SELFPAY | PROVIDERS: PCP Internal Medicine; Visit Provider Anesthesiology Pain Medicine | DX: M54.16 Radiculopathy, lumbar region (principal) | CPT/HCPCS: 64483; 64484; J1100; J3490 ==

== ENCOUNTER → 2023-08-13 08:42 | Outpatient (BNVA) | payer MEDICAID, SELFPAY | PROVIDERS: PCP Internal Medicine; Visit Provider Anesthesiology Pain Medicine | DX: M47.812 Spondylosis without myelopathy or radiculopathy, cervical region; M50.30 Other cervical disc degeneration, unspecified cervical region; M75.42 Impingement syndrome of left shoulder | CPT/HCPCS: 99214 ==

== ENCOUNTER 2023-09-05 12:42 | Outpatient (CLI) | payer MEDICAID, SELFPAY ==
--- NOTE | 2023-09-05 13:00 | MR_ITS ---
WS: [id number] MRI LUMBAR SPINE NONCONTRAST TECHNIQUE: Sagittal T1, T2 and STIR imaging. Axial T1 and T2 imaging. CLINICAL INFORMATION: M48.062 - Spinal stenosis, lumbar region with neurogenic ... COMPARISON: MRI 2017 FINDINGS: Mild lumbar curve. No acute compression. Prominent disc protrusion L4-5 has progressed compared to pr evious. L1-L2: Mild facet arthropathy. Spinal canal and foramen are patent. L2-L3: No significant disc bulging. Moderate facet arthropathy. Spinal canal and foramen are patent. L3-L4: Mild annular bulging. Narrowing of the subarticular recess bilaterally. Moderate facet arthrop athy. Mild LEFT greater than RIGHT foraminal narrowing. L4-L5: Prominent RIGHT subarticular disc protrusion impinges the traversing RIGHT L5 nerve root in th e subarticular recess. Moderate to severe central canal stenosis. This is progressed compared to prev ious. Moderate facet arthropathy. Mild RIGHT foraminal narrowing. LEFT foramen is patent. Disc protru elieser measures 7 mm in AP dimension. L5-S1: No significant disc bulging. Mild facet arthropathy. Spinal canal and foramen are patent. Visualized pelvic bony structures: Normal. Paravertebral soft tissues: Normal. IMPRESSION: 1. Large progressed RIGHT paracentral protrusion L4-5 impinges the RIGHT subarticular recess with mo derate to severe central canal stenosis. This is progressed compared to previous. Impingement joe ing RIGHT L5 nerve root. Mild RIGHT L4-5 foraminal narrowing. 2. Tiny LEFT foraminal protrusion L3-4 with mild LEFT foraminal narrowing. 3. Moderate facet arthropathy L3-L5.
== END 2023-09-05 12:43 | disposition home or self-care (01) ==
LOC: RAD 12:42
PROVIDERS: PCP Internal Medicine; Visit Provider Anesthesiology Pain Medicine
DX: M48.062 Spinal stenosis, lumbar region with neurogenic claudication (principal)
CPT/HCPCS: 72148

== ENCOUNTER → 2023-11-18 09:30 | Outpatient (BNVA) | payer MEDICAID, SELFPAY | PROVIDERS: PCP Internal Medicine; Visit Provider Anesthesiology Pain Medicine | DX: M47.812 Spondylosis without myelopathy or radiculopathy, cervical region; M50.30 Other cervical disc degeneration, unspecified cervical region; M75.42 Impingement syndrome of left shoulder; M51.16 Intervertebral disc disorders with radiculopathy, lumbar region | CPT/HCPCS: 99215 ==

== ENCOUNTER → 2023-11-25 14:27 | Outpatient (BNVA) | payer MEDICAID, SELFPAY | PROVIDERS: PCP Internal Medicine; Visit Provider Anesthesiology Pain Medicine | DX: M54.16 Radiculopathy, lumbar region (principal) | CPT/HCPCS: 64483; 64484; J1100; J3490 ==

== ENCOUNTER → 2023-12-09 10:26 | Outpatient (BNVA) | payer MEDICAID, SELFPAY | PROVIDERS: PCP Internal Medicine; Visit Provider Nurse Practitioner Family | DX: L40.0 Psoriasis vulgaris (principal); L82.1 Other seborrheic keratosis; L57.8 Other skin changes due to chronic exposure to nonionizing radiation; D22.5 Melanocytic nevi of trunk | CPT/HCPCS: 99204 ==

== ENCOUNTER → 2024-01-14 09:24 | Outpatient (BNVA) | payer MEDICAID, SELFPAY | PROVIDERS: PCP Internal Medicine; Visit Provider Nurse Practitioner Family | DX: L40.0 Psoriasis vulgaris (principal) | CPT/HCPCS: 99214 ==

== ENCOUNTER 2024-04-26 10:00 | Outpatient (CLI) | payer MEDICARE, OTHER, MEDICAID, SELFPAY ==
--- NOTE | 2024-04-26 10:09 | CT_ITS ---
WS: [email or web address] LDCT LUNG CANCER SCREENING HISTORY: NICOTINE DEPENDENCE TECHNIQUE: Axial imaging performed from the apices to 1 cm below the costophrenic angles. Coronal and sagittal reformats are submitted with axial MIP series. All CT scans at [facility] use at least one of these dose optimization techniques: automated exposure control; mA and/or kV adjustment per patient size (includes targeted exams where dose is matched to clinical indication); or iterativ e reconstruction. DLP: 68.30 mGy.cm DIvol: Mean CTDIvol: 1.50 (mGy) COMPARISON: 03/31/2023, 01/12/2020 Diagnostic quality: Satisfactory Lungs: Pulmonary hyperexpansion. RIGHT lower lobe pulmonary nodules are reidentified. These nodules m easure approximately 5 mm and have been present since 01/12/2020. There are additional calcified granul omata. Stable tiny micronodules at the LEFT lung base adjacent to a granuloma. Very mild nodularity i n the distal LEFT main bronchus. There are several small nodules which do not have the appearance of frothy secretions. Short-term follow-up is recommended. Heart: Normal size heart with no pericardial effusion.. Other findings: Atherosclerosis aorta. No aneurysm. Normal size pulmonary artery. 2.0 cm LEFT adrenal mass with elevated Hounsfield units. This mass has been present since 01/12/2020 with no increase in s ize. CT from 04/24/[address]/CT lung screening [id number] IMPRESSION: LUNG-RADS: 4A-Probably Suspicious FOLLOW UP: 3 Month LDCT OTHER FINDINGS (S MODIFIER): None. 3-month chest CT follow-up is recommended to reevaluate the LEFT endobronchial nodules.
== END 2024-04-26 10:02 | disposition home or self-care (01) ==
PROVIDERS: PCP Internal Medicine; Visit Provider Internal Medicine
DX: Z12.2 Encounter for screening for malignant neoplasm of respiratory organs (principal); F17.210 Nicotine dependence, cigarettes, uncomplicated; R91.8 Other nonspecific abnormal finding of lung field; J84.10 Pulmonary fibrosis, unspecified; I70.0 Atherosclerosis of aorta; D35.02 Benign neoplasm of left adrenal gland
CPT/HCPCS: 71271

== ENCOUNTER 2024-06-21 08:05 | Outpatient (CLI) | payer MEDICARE, MEDICAID, SELFPAY ==
--- NOTE | 2024-06-21 08:09 | CT_ITS ---
WS: [email or web address] CT CHEST TECHNIQUE: Contrast enhanced CT of the chest with coronal and sagittal reformatted images. CLINICAL INFORMATION: PULMONARY NODULE COMPARISON: CT 04/26/2024 DLP: 277.[address] scans at [facility] use at least one of these dose optimization techniques: automated e xposure control; mA and/or kV adjustment per patient size (includes targeted exams where dose is matc hed to clinical indication); or iterative reconstruction. FINDINGS: A few calcified granulomas. Again seen are the small nodules RIGHT lower lobe measuring up to 5 mm unchanged. Few tiny micronodules LEFT lower lobe. Nodularity along the distal LEFT mainstem b ronchus previously described appears resolved compared to the prior examination. No endobronchial mas s or lesion visualized today. Fibrosis in the lung apices. Normal caliber thoracic aorta. Aortic calcification. No mediastinal or hilar lymphadenopathy. No axil elan lymphadenopathy. Small esophageal hiatal hernia. LEFT adrenal mass measuring 2.0 cm stable since 2019. Diffuse fatty i nfiltration of the liver. A few hepatic cysts. Small 9 mm enhancing lesion in the RIGHT hepatic lobe likely hemangioma. This was present in 2019. Prior cholecystectomy. CT/CT chest w con* [id number] IMPRESSION: 1. Previously described endobronchial nodularity has resolved. 2. No other significant changes compared to previous. 3. Recommend return to annual CT lung screening
[2024-06-21] MEDS: iohexol 350 mg/mL 500 mL Btl (per mL) IV (08:41)
== END 2024-06-21 08:06 | disposition home or self-care (01) ==
PROVIDERS: PCP Internal Medicine; Visit Provider Internal Medicine
DX: R91.8 Other nonspecific abnormal finding of lung field (principal); J84.10 Pulmonary fibrosis, unspecified; I70.0 Atherosclerosis of aorta; K44.9 Diaphragmatic hernia without obstruction or gangrene; D35.02 Benign neoplasm of left adrenal gland; K76.0 Fatty (change of) liver, not elsewhere classified; Q44.6 Cystic disease of liver; K76.9 Liver disease, unspecified; Z90.49 Acquired absence of other specified parts of digestive tract
CPT/HCPCS: 71260

== ENCOUNTER 2024-07-02 12:13 | Outpatient (CLI) | payer MEDICARE, MEDICAID, SELFPAY ==
--- NOTE | 2024-07-02 12:21 | MM_ITS ---
WS: [email or web address] BILATERAL 3D TOMOSYNTHESIS DIGITAL SCREENING MAMMOGRAPHY WITH CAD CLINICAL INFORMATION: SCREENING HISTORY: Screening mammogram. No current complaints. COMPARISON: 2022 TECHNIQUE: Bilateral CC and MLO views. FINDINGS: Scattered fibroglandular densities bilaterally. No suspicious focal mass, asymmetry, calcifications, or architectural distortion. No evidence of malignancy. Bilateral nodular breast tissue similar to th e prior studies. Prior RIGHT breast ultrasound 08/17/2021 demonstrating RIGHT breast cyst. MM/MM scr tomosynthesis [id number] IMPRESSION: DENSITY: There are scattered areas of fibroglandular density. BI-RADS: 2 - Benign. FOLLOW UP: 1 Year Follow-up Recommend return to annual screening mammography.
== END 2024-07-02 12:14 | disposition home or self-care (01) ==
LOC: RAD 12:17
PROVIDERS: PCP Internal Medicine; Visit Provider Internal Medicine
DX: Z12.31 Encounter for screening mammogram for malignant neoplasm of breast (principal); R92.323 Mammographic fibroglandular density, bilateral breasts
CPT/HCPCS: 77063; 77067

== ENCOUNTER → 2024-08-04 14:00 | Outpatient (BNVA) | payer MEDICARE, MEDICAID, SELFPAY | PROVIDERS: PCP Internal Medicine; Visit Provider Nurse Practitioner Family | DX: L40.0 Psoriasis vulgaris (principal); L81.0 Postinflammatory hyperpigmentation; L59.0 Erythema ab igne [dermatitis ab igne] | CPT/HCPCS: 99214 ==

== ENCOUNTER 2024-09-28 20:00 | Outpatient (CLI) | payer MEDICARE, SELFPAY | END 2024-09-28 20:01 | disposition home or self-care (01) | LOC: SLEEP 23:56 | PROVIDERS: PCP Internal Medicine; Visit Provider Internal Medicine | DX: G47.33 Obstructive sleep apnea (adult) (pediatric) (principal); G47.36 Sleep related hypoventilation in conditions classified elsewhere | CPT/HCPCS: 95810 ==

== ENCOUNTER 2024-12-21 11:50 | Outpatient (CLI) | payer OTHER, MEDICAID, SELFPAY ==
--- NOTE | 2024-12-21 11:56 | XRR_ITS ---
PROCEDURE INFORMATION: Exam: XR Right Ankle Exam date and time: 12/21/2024 12:31 PM Age: 64 years old Clinical indication: Ankle; Right; -fall x10 days, pain runs from toes to knee; Additional info: Pain in R ankle TECHNIQUE: Imaging protocol: Radiologic exam of the right ankle. Views: 3 or more views. COMPARISON: CR XR knee RT 3V* [id number] 03/20/2021 12:28 PM FINDINGS: Bones/joints: Normal. No fracture or dislocation. No acute osseous or joint abnormality. Soft tissues: Normal. XR/XR ankle RT min 3V* [id number] IMPRESSION: No acute findings.
== END 2024-12-21 11:51 | disposition home or self-care (01) ==
LOC: RAD 11:53
PROVIDERS: PCP Internal Medicine; Visit Provider Internal Medicine
DX: M25.571 Pain in right ankle and joints of right foot (principal)
CPT/HCPCS: 73610

== ENCOUNTER → 2025-01-10 14:53 | Outpatient (BNVA) | payer OTHER, MEDICAID, SELFPAY | PROVIDERS: PCP Internal Medicine; Referring Provider Internal Medicine; Visit Provider Anesthesiology Pain Medicine | DX: M54.50 Low back pain, unspecified (principal); M54.9 Dorsalgia, unspecified; M54.2 Cervicalgia; M47.812 Spondylosis without myelopathy or radiculopathy, cervical region; M75.42 Impingement syndrome of left shoulder; M51.16 Intervertebral disc disorders with radiculopathy, lumbar region | CPT/HCPCS: 72110; 99214 ==

== ENCOUNTER → 2025-01-19 10:42 | Outpatient (BNVA) | payer OTHER, MEDICAID, SELFPAY | PROVIDERS: PCP Internal Medicine; Visit Provider Anesthesiology Pain Medicine | DX: M47.816 Spondylosis without myelopathy or radiculopathy, lumbar region (principal); M54.9 Dorsalgia, unspecified | CPT/HCPCS: 64493; 64494; 64495; J3490; J9999 ==

== ENCOUNTER → 2025-02-01 08:58 | Outpatient (BNVA) | payer OTHER, MEDICAID, SELFPAY | PROVIDERS: PCP Internal Medicine; Visit Provider Anesthesiology Pain Medicine | DX: M54.9 Dorsalgia, unspecified (principal); M54.2 Cervicalgia; M47.812 Spondylosis without myelopathy or radiculopathy, cervical region; M75.42 Impingement syndrome of left shoulder; M51.16 Intervertebral disc disorders with radiculopathy, lumbar region | CPT/HCPCS: 99214 ==

== ENCOUNTER → 2025-02-03 14:41 | Outpatient (BNVA) | payer OTHER, MEDICAID, SELFPAY | PROVIDERS: PCP Internal Medicine; Visit Provider Nurse Practitioner Family | DX: L40.0 Psoriasis vulgaris (principal); L57.8 Other skin changes due to chronic exposure to nonionizing radiation; X32.XXXA Exposure to sunlight, initial encounter; D18.01 Hemangioma of skin and subcutaneous tissue; L81.4 Other melanin hyperpigmentation; L82.1 Other seborrheic keratosis | CPT/HCPCS: 99214 ==

== ENCOUNTER → 2025-02-16 08:40 | Outpatient (BNVA) | payer OTHER, MEDICAID, SELFPAY | PROVIDERS: PCP Internal Medicine; Visit Provider Anesthesiology Pain Medicine | DX: M47.816 Spondylosis without myelopathy or radiculopathy, lumbar region (principal); M54.9 Dorsalgia, unspecified | CPT/HCPCS: 64493; 64494; 64495; J3490; J9999 ==

== ENCOUNTER → 2025-03-01 10:01 | Outpatient (BNVA) | payer OTHER, MEDICAID, SELFPAY | PROVIDERS: PCP Internal Medicine; Visit Provider Anesthesiology Pain Medicine | DX: M54.9 Dorsalgia, unspecified (principal); M54.2 Cervicalgia; M47.812 Spondylosis without myelopathy or radiculopathy, cervical region; M75.42 Impingement syndrome of left shoulder; M51.16 Intervertebral disc disorders with radiculopathy, lumbar region | CPT/HCPCS: 99214 ==

== ENCOUNTER → 2025-03-09 09:15 | Outpatient (BNVA) | payer OTHER, MEDICAID, SELFPAY | PROVIDERS: PCP Internal Medicine; Visit Provider Anesthesiology Pain Medicine | DX: M47.816 Spondylosis without myelopathy or radiculopathy, lumbar region (principal) | CPT/HCPCS: 64635; 64636; J1100; J9999 ==

== ENCOUNTER → 2025-03-23 10:20 | Outpatient (BNVA) | payer OTHER, MEDICAID, SELFPAY | PROVIDERS: PCP Internal Medicine; Visit Provider Anesthesiology Pain Medicine | DX: M47.816 Spondylosis without myelopathy or radiculopathy, lumbar region (principal) | CPT/HCPCS: 64635; 64636; J1100; J9999 ==

== ENCOUNTER → 2025-04-05 10:19 | Outpatient (BNVA) | payer OTHER, MEDICAID, SELFPAY | PROVIDERS: PCP Internal Medicine; Visit Provider Anesthesiology Pain Medicine | DX: M54.9 Dorsalgia, unspecified (principal); M54.2 Cervicalgia; M47.812 Spondylosis without myelopathy or radiculopathy, cervical region; M75.42 Impingement syndrome of left shoulder; M51.16 Intervertebral disc disorders with radiculopathy, lumbar region | CPT/HCPCS: 99213 ==